=== PATIENT | male | born 1965 ===

== ENCOUNTER 2017-03-31 02:58 | Emergency (ER) | payer OTHER ==
[2017-03-31 03:31] VITALS: BMI 29.4
[2017-03-31 03:33] VITALS: BP 132/73; PULSE 72; RESP 18; TEMP 98.7; O2SAT 98
--- NOTE | 2017-03-31 04:12 | ED PDOC ---
HPI: Back Time Seen by Provider: 03/31/17 03:08 Chief Complaint (Nursing): Back Pain History Per: Patient History/Exam Limitations: no limitations Onset/Duration Of Symptoms: Days Current Symptoms Are (Timing): Still Present Full Body Front + Back: 1 - low back pain Quality Of Discomfort: "Pain" Associated Symptoms: None Exacerbating Factor(s): Movement Additional Complaint(s): 51 y/o man w/ no known pmh presents to the ED w/ low back pain. Patient reports low back pain for the past 2 weeks. 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 Patient reports pain is strong, radiates down both legs and right testicle, and unrelieved by Etoricoxib (SANDERSON-2 inhibitor from [place]). Patient denies saddle paresthesia, urinary retention/ incontinence, or bowel incontinence. Patient denies headaches, chest pain, SOB , abdominal pain, nausea, vomiting, diarrhea, dysuria, fever, hematuria, or other discharge. allergies: NKDA PMH: no known medical problems PMD: none PSH: "hernia" in back 29 yrs ago FamHx: father has diabetes SOC: denies smoking, alcohol, and drugs ROS: 12 points assessed and negative unless otherwise reported in HPI - Risk Factors AAA Risk Factors: Pos: Older Than 49 Years Of Age Neg: Hypertension, Connective Tissue Disease, Marfan's Syndrome, [place]- Danlos Syndrome, Prior AAA Past Medical History Vital Signs: Last Vital Signs Temp 98.7 F 03/31/17 03:31 Pulse 72 03/31/17 03:31 Resp 18 03/31/17 03:31 BP 132/73 03/31/17 03:31 Pulse Ox 98 03/31/17 03:31 - Medical History PMH: Bronchitis - Surgical History Surgical History: Hernia Repair - Family History Family History: States: Diabetes - Social History Current smoker - smoking cessation education provided: No - Home Medications Home Medications: Ambulatory Orders Medication Instructions Recorded Cyclobenzaprine [Cyclobenzaprine 10 mg PO TID PRN #15 tab 03/31/17 HCl] - Allergies Allergies/Adverse Reactions: Allergies Allergy/AdvReac Type Severity Reaction Status Date / Time No Known Allergies Allergy Verified 03/31/17 03:30 Review of Systems ROS Statement: Except As Marked, All Systems Reviewed And Found Negative Constitutional: Negative for: Fever, Chills, Sweats, Weakness, Malaise, Weight loss Cardiovascular: Negative for: Chest Pain, Palpitations, Orthopnea, Paroxysmal Noc. Dyspnea, Edema, Light Headedness Respiratory: Negative for: Cough, Shortness of Breath Gastrointestinal: Negative for: Nausea, Vomiting, Abdominal Pain, Diarrhea Genitourinary Male: Positive for: Scrotal Pain. Negative for: Dysuria, Incontinence, Hematuria, Penile Discharge, Rash, Penile Pain Musculoskeletal: Positive for: Back Pain. Negative for: Neck Pain, Shoulder Pain, Leg Pain Skin: Negative for: Rash Neurological: Negative for: Weakness, Numbness, Incoordination, Confusion, Seizures, Altered Mental Status, Headache, Dizziness Physical Exam - Reviewed Nursing Documentation Reviewed: Yes Vital Signs Reviewed: Yes - Physical Exam Appears: Positive for: No Acute Distress Head Exam: Positive for: ATRAUMATIC, NORMAL INSPECTION, NORMOCEPHALIC Skin: Positive for: Normal Color, Warm, Dry. Negative for: Rash Eye Exam: Positive for: Normal appearance ENT: Positive for: Normal ENT Inspection Neck: Positive for: Normal, Painless ROM, Supple Cardiovascular/Chest: Positive for: Regular Rate, Rhythm, Chest Non Tender. Negative for: Edema, JVD, Murmur, Bradycardia, Tachycardia, Irregularly Irregular Respiratory: Positive for: Normal Breath Sounds. Negative for: Decreased Breath Sounds, Accessory Muscle Use, Crackles, Rales, Rhonchi, Stridor, Wheezing , Respiratory Distress, Plerual Rub Pulses-Carotid (L): 2+ Pulses-Carotid (R): 2+ Pulses-Post. Tibialis (L): 2+ Pulses-Post. Tibialis (R): 2+ Pulses-Radial (L): 2+ Pulses-Radial (R): 2+ Gastrointestinal/Abdominal: Positive for: Normal Exam, Bowel Sounds, Soft. Negative for: Tenderness, Mass, Distended, Hernia Male Genital Exam: Positive for: normal genitalia, no hernia. Negative for: bleeding, erythema, hernia mass, inguinal tenderness, scrotum tenderness (R), scrotum tenderness (L), testicular tenderness (R), testicular tenderness (L), urethral discharge Back: Positive for: Normal Inspection, Decreased ROM, Muscle Spasm. Negative for: L CVA Tenderness, R CVA Tenderness, Vertebral Tenderness Extremity: Positive for: Normal ROM. Negative for: Tenderness, Pedal Edema, Calf Tenderness, Swelling Neurologic/Psych: Positive for: Alert, certified professional coder II-XII, Oriented, Gait (slowly w/ pain). Negative for: Motor/Sensory Deficits, Aphasia, Facial Droop - Laboratory Results Result Diagrams: 03/31/17 04:40 03/31/17 04:40 - ECG O2 Sat by Pulse Oximetry: 98 - Progress ED Course And Treament: 51 y/o man w/ no known pmh presents to the ED w/ low back pain. Most likely musculoskeletal strain vs. nephrolithiasis vs. renal issue CBC w/ diff CMP UA toradal 15 mg flexeril 10 mg re-evaluate, if UA shows renal issue proceed w/ renal U/S, if non-renal then proceed w/ L-spine XR and/or CT Medical Decision Making Medical Decision Makin51 y/o man w/ no known pmh presents to the ED w/ low back pain. Most likely musculoskeletal strain vs. nephrolithiasis vs. renal issue CBC w/ diff; no elevated WBC, no anemia CMP: WNL UA: WNL toradal 15 mg given flexeril 10 mg given re-evaluate CT lumbar spine w/o: degenerative changes along lumbar spin especially at L4-L5 , no acute fractures DC home w/ script for flexeril, follow up w/ pmd in 1 week, continue taking SANDERSON- 2 inhibitor Disposition - Clinical Impression Clinical Impression: Low back pain - Patient ED Disposition Is Patient to be Admitted: No Discussed With : Rasheed Higginbotham Counseled Patient/Family Regarding: Studies Performed, Diagnosis, Need For Followup, Rx Given - Disposition Referrals: [facility] [Outside] Disposition: Routine/Home Disposition Time: 05:45 Condition: STABLE Prescriptions: Cyclobenzaprine [Cyclobenzaprine HCl] 10 mg PO TID PRN #15 tab PRN Reason: back pain Instructions: Acute Low Back Pain (ED) Forms: [employer] (Syriac) Print Language: TUNISIAN - POA Present On Arrival: None
[2017-03-31 05:00] LABS: RBC URINE 1 /hpf (0-3); URINE BILIRUBIN NEGATIVE (NEGATIVE); URINE BLOOD MODERATE (NEGATIVE); URINE COLOR YELLOW (YELLOW); URINE GLUCOSE (UA) NEG (Normal); URINE KETONE NEGATIVE (NEGATIVE); URINE LEUKOCYTE ESTERASE NEG Leu/uL (Negative); URINE PROTEIN NEGATIVE (NEGATIVE); URINE UROBILINOGEN 0.2-1.0 mg/dL (0.2-1.0); WBC URINE < 1 /hpf (0-5)
[2017-03-31 05:05] LABS: BASO % 0.7 % (0.0-2.0); EOS # 0.1 K/uL (0.0-0.7); HEMATOCRIT 46.1 % (35.0-51.0); LYMPH # 2.1 K/uL (1.0-4.3); LYMPH % 31.3 % (20.0-40.0); MEAN CORPUSCULAR HGB CONC 33.7 g/dL (33.0-37.0); MEAN PLATELET VOLUME 8.8 fl (7.2-11.7); MONO # 0.5 K/uL (0.0-0.8); MONO % 7.3 % (0.0-10.0); NEUT % 58.7 % (50.0-75.0); RED CELL DISTRIBUTION WIDTH 13.5 % (11.5-14.5); WHITE BLOOD COUNT 6.7 K/uL (4.8-10.8)
[2017-03-31 05:15] LABS: ALB/GLOB RATIO 1.4 (1.0-2.1); ALKALINE PHOSPHATASE 69 U/L (38-126); ALT/SGPT 70 U/L (21-72); AST/SGOT 45 U/L (17-59); BILIRUBIN,TOTAL 1.7 mg/dl (0.2-1.3); BLOOD UREA NITROGEN 15 mg/dl (9-20); CALCIUM 8.5 mg/dL (8.4-10.2); CARBON DIOXIDE 22 mmol/L (22-30); CHLORIDE 106 mmol/L (98-107); GFR AFRICAN-AMERICAN > 60; GLUCOSE,RANDOM 108 mg/dL (75-110); POTASSIUM 4.1 MMOL/L (3.6-5.0); SODIUM 138 mmol/l (132-148); TOTAL PROTEIN 7.4 G/DL (6.3-8.2)
--- NOTE | 2017-03-31 09:24 | CT ---
PROCEDURE: CT Lumbar Spine without contrast HISTORY: Low back pain COMPARISON: None. TECHNIQUE: Axial computed tomography images were obtained of the lumbar spine without the use of intravenous contrast. Coronal and sagittal reformatted images were created and reviewed. Radiation dose: Total exam DLP = 1033.19 mGy-cm. This CT exam was performed using one or more of the following dose reduction techniques: Automated exposure control, adjustment of the mA and/or kV according to patient size, and/or use of iterative reconstruction technique. FINDINGS: VERTEBRAE: There is 5 mm degenerative retrolisthesis of L4 on L5 and L5 on S1. There is normal lumbar lordosis. Bone mineralization is normal. There is no acute fracture or spondylolisthesis. DISCS/SPINAL CANAL/NEURAL FORAMINA: L1-2: No large disc herniation, neural foraminal or spinal canal stenosis. L2-3: No large disc herniation, neural foraminal or spinal canal stenosis. L3-4: Central disc protrusion indents the ventral thecal sac without central spinal canal stenosis. Mild bilateral facet arthropathy contributes to mild neural foraminal stenosis. L4-5: There is desiccation of the L4-5 disc with severe reduced disc height. Diffuse disc bulge without spinal canal stenosis. Moderate bilateral facet arthropathy contributes to [id number] right and severe left neural foraminal stenosis. L5-S1: Disc degeneration with calcification and large posterior inferior osteophyte. Diffuse posterior disc bulge superimposed left posterolateral disc protrusion and asymmetric left posterolateral osteophyte which abuts the left traversing S1 nerve root. Moderate bilateral facet arthropathy contributes to mild right and moderate left neural foraminal stenosis. PARASPINAL SOFT TISSUES: The paraspinous soft tissues are normal. Imaged portion of the retroperitoneum is within normal limits. OTHER FINDINGS: None. IMPRESSION: 1. No acute fracture or spondylolysis. 2. Moderate degenerative disc disease at L4-5 and L5-S1, worse at L5-S1 with a diffuse posterior disc bulge and superimposed left posterolateral disc protrusion and osteophyte which abuts the traversing left S1 nerve root, also noted is moderate left neural foraminal stenosis. No central spinal canal stenosis. A preliminary report was provided by [facility].
== END 2017-03-31 05:52 | disposition home or self-care (01) ==
LOC: H.ER 02:58
DX: M54.5 Low back pain (principal); M51.26 Other intervertebral disc displacement, lumbar region; M51.27 Other intervertebral disc displacement, lumbosacral region; M51.36 Other intervertebral disc degeneration, lumbar region
CPT/HCPCS: 72131; 80053; 81003; 85025; 96374; 99282; J1885

== ENCOUNTER 2017-05-31 12:09 | Emergency (ER) | payer SELFPAY ==
[2017-05-31 12:28] VITALS: BMI 35.5
[2017-05-31 12:29] VITALS: BP 135/86; PULSE 89; RESP 16; TEMP 98; O2SAT 100
[2017-05-31] MEDS ORDERED: Lidocaine 5% Patch TD STA (12:42)
--- NOTE | 2017-05-31 12:57 | ED PDOC ---
HPI: General Adult Time Seen by Provider: 05/31/17 12:33 Chief Complaint (Nursing): Back Pain Chief Complaint (Provider): Back Pain History Per: Patient History/Exam Limitations: no limitations Onset/Duration Of Symptoms: Days Current Symptoms Are (Timing): Still Present Additional Complaint(s): 51 year old male presents to the emergency department with a complaint of an atraumatic back pain for the past several months. Patient was seen in this facility before and prescribed medication with no relief of symptoms. States he followed up with the clinic and was advised to do physical therapy which he did for 1.5 weeks and stopped because symptoms became worse. States four days ago pain became worse despite no trauma. Reports pain starts at the lef buttock area and radiates down the left leg. 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 Denies trauma, bowel or urine incontinence, dysuria, hematuria, abdominal pain, or fever. Past Medical History Reviewed: Historical Data, Nursing Documentation, Vital Signs Vital Signs: Last Vital Signs Temp 98.0 F 05/31/17 12:28 Pulse 89 05/31/17 12:28 Resp 16 05/31/17 12:28 BP 135/86 05/31/17 12:28 Pulse Ox 100 05/31/17 13:06 - Medical History PMH: Bronchitis - Surgical History Surgical History: Hernia Repair - Family History Family History: States: Diabetes - Social History Current smoker - smoking cessation education provided: No Alcohol: None Drugs: Denies - Home Medications Home Medications: Ambulatory Orders Medication Instructions Recorded Cyclobenzaprine [Cyclobenzaprine 10 mg PO TID PRN #15 tab 03/31/17 HCl] Methocarbamol [Robaxin] 500 mg PO Q8 PRN #20 tab 05/31/17 Naproxen [Naprosyn] 500 mg PO BID PRN #30 tab 05/31/17 - Allergies Allergies/Adverse Reactions: Allergies Allergy/AdvReac Type Severity Reaction Status Date / Time No Known Allergies Allergy Verified 05/31/17 12:27 Review of Systems ROS Statement: Except As Marked, All Systems Reviewed And Found Negative (As per HPI, otherwise negative) Constitutional: Negative for: Fever, Other (Trauma) Gastrointestinal: Negative for: Abdominal Pain Genitourinary Male: Negative for: Dysuria, Incontinence (bowel or urine), Hematuria Musculoskeletal: Positive for: Back Pain, Leg Pain (Left), Other (Left buttock area) Physical Exam - Reviewed Nursing Documentation Reviewed: Yes Vital Signs Reviewed: Yes - Physical Exam Appears: Positive for: In Acute Distress (Minimal painful distress) Head Exam: Positive for: NORMAL INSPECTION Skin: Positive for: Normal Color, Warm, Dry. Negative for: Rash Cardiovascular/Chest: Positive for: Regular Rate, Rhythm. Negative for: Murmur Respiratory: Positive for: Normal Breath Sounds. Negative for: Accessory Muscle Use, Respiratory Distress Gastrointestinal/Abdominal: Positive for: Normal Exam, Soft. Negative for: Tenderness Back: Positive for: Other (Left buttock tenderness with spasm). Negative for: Normal Inspection (Straight left test negative bilaterally), Vertebral Tenderness Neurologic/Psych: Positive for: Alert, Oriented (x3) - ECG O2 Sat by Pulse Oximetry: 100 (RA) Pulse Ox Interpretation: Normal Medical Decision Making Medical Decision Making: Time: 1242 Initial impression: Back pain Initial plan: --Valium 10 mg PO --Toradol 60 mg IM --Lidocaine 1 TD --Reevaluation Scribe Attestation: Documented by Melba Leyva, acting as a scribe for Jeremie Cox PA-C Provider Scribe Attestation: All medical record entries made by the Scribe were at my direction and personally dictated by me. I have reviewed the chart and agree that the record accurately reflects my personal performance of the history, physical exam, medical decision making, and the department course for this patient. I have also personally directed, reviewed, and agree with the discharge instructions and disposition. Disposition - Clinical Impression Clinical Impression: Sciatica - Patient ED Disposition Is Patient to be Admitted: No - Disposition Referrals: [facility] [Outside] [facility] [Outside] Disposition: Routine/Home Disposition Time: 12:44 Condition: IMPROVED Prescriptions: Methocarbamol [Robaxin] 500 mg PO Q8 PRN #20 tab PRN Reason: Muscle Spasm Naproxen [Naprosyn] 500 mg PO BID PRN #30 tab PRN Reason: Pain Instructions: Sciatica (ED) Forms: [employer] ([place]) Print Language: MALAYSIAN
[2017-05-31] MEDS ORDERED: Lidocaine 5% Patch TD ONE (13:02)
== END 2017-05-31 14:12 | disposition home or self-care (01) ==
LOC: H.ER 12:09
DX: M54.30 Sciatica, unspecified side (principal)
CPT/HCPCS: 96372; 99283; J1885